=== PATIENT | female | born 1945 | race Hispanic/Latino ===

== ENCOUNTER 2016-04-07 14:06 | Outpatient (CLI) | payer MEDICARE ==
--- NOTE | 2016-04-07 14:40 | Mammography Report ---
Bilateral mammogram: Compared to 07/30/14. CAD study utilized. Findings: Heterogeneous breast parenchyma bilaterally. Circumscribed density right and left breast with benign calcifications scattered throughout right and left breast. Benign axillary nodes. No microcalcification. Impression: Benign findings. Annual followup recommended. BI-RADS CATEGORY: 2 = Benign ACR BI-RADS MAMMOGRAPHIC CODES: 0 = Needs additional imaging evaluation; 1 = Negative; 2 = Benign; 3 = Probably benign; 4 = Suspicious; 5 = Malignant; 6 = Known biopsy-proven malignancy COMMENT: 1. Dense breast tissue, i.e., adenosis, fibrocystic changes, etc., may obscure an underlying neoplasm. 2. Approximately 10% of cancers are not detected with mammography. 3. A negative mammography report should not delay biopsy if a clinically suspicious mass is present. COMMENT: Patient follow-up letters are generated in [employer].
== END 2016-04-07 14:07 | disposition home or self-care (01) ==
LOC: MAMMO 14:06
PROVIDERS: ATTEND Family Medicine
DX: Z12.31 Encounter for screening mammogram for malignant neoplasm of breast (principal)
CPT/HCPCS: 77067; G0202

== ENCOUNTER 2017-02-28 08:39 | Outpatient (CLI) | payer MEDICARE ==
--- NOTE | 2017-02-28 13:15 | Mammography Report ---
BONE DEXA:02/28/17 09:30:00 CLINICAL: Postmenopausal osteoporosis. COMPARISON: 07/30/14 and 05/13/11 TECHNIQUE: Two site bone DEXA performed on an Hologic scanner. FINDINGS: The average BMD of the lumbar spine L1-L4 is 0.773g/cm squared with a T-score of -2.5 and a Z score of -0.2. This compares to 0.770 g/cm squared on the last exams and represents a +0.5% increase in BMD compared to previous exams. The average BMD of the left hip is 0.705g/cm squared with a T-score of -1.9 and a Z score of -0.2.This compares to 0.706g/cm squared on the last exam and represents a -0.2% change in BMD from the previous exam but it +3.0% change from baseline. The femoral neck BMD is 0.503 with a T score of -3.1 and Z score of -1.1 IMPRESSION: WHO classification: Osteoporosis with high fracture risk based on spine and left femoral neck measurements. Minimal improvement in spine BMD compared to the last exam and a slight decline in left hip BMD compared to the previous exam. RECOMMENDATION: Clinical correlation and routine screening. DEFINITIONS: BMD = Bone Mineral Density T-score = BMD related to mean peak bone mass of young adult (mean expressed in Standard Deviation) Z-score = Age matched BMD expressed in SD World Health Organization (WHO) Diagnostic Criteria Normal T-score > -1 SD Osteopenia T-score between -1 and -2.4 SD Osteoporosis T-score -2.5 SD or below NOTE: BMD is not the only risk factor for fracture; also consider factors such as the patient's age, risk of falling, previous osteoporotic fracture, family history of osteoporotic fractures, current smoker, and low body weight. All treatment decisions require clinical judgment and consideration of individual patient factors, including patient preferences, comorbidities, previous drug use and wrist factors not captured in the FRAX model (e.g. frailty, falls, vitamin D deficiency, increased bone turnover, interval significant decline in BMD). Z-scores are not calculated if >80 years of age.
== END 2017-02-28 08:40 | disposition home or self-care (01) ==
LOC: MAMMO 08:39
PROVIDERS: ATTEND Specialist
DX: M81.0 Age-related osteoporosis without current pathological fracture (principal)
CPT/HCPCS: 77080

== ENCOUNTER 2017-04-10 07:22 | Outpatient (CLI) | payer MEDICARE ==
--- NOTE | 2017-04-10 09:00 | Mammography Report ---
Screening mammogram: Routine views compared to prior exams dating back to 2015. The overall fibroglandular pattern is heterogeneously dense with a generally symmetric and diffuse distribution of patchy densities in both breasts. Numerous benign appearing breast calcifications are present throughout both breasts. There is a circumscribed mass in the right breast which is shown progressive enlargement since 2015. Findings are not otherwise remarkable were changed. CAD used. Impression: Right breast asymmetry. Recommendation: Right breast ultrasound. BI-RADS CATEGORY: 0 = Needs additional imaging evaluation ACR BI-RADS MAMMOGRAPHIC CODES: 0 = Needs additional imaging evaluation; 1 = Negative; 2 = Benign; 3 = Probably benign; 4 = Suspicious; 5 = Malignant; 6 = Known biopsy-proven malignancy COMMENT: 1. Dense breast tissue, i.e., adenosis, fibrocystic changes, etc., may obscure an underlying neoplasm. 2. Approximately 10% of cancers are not detected with mammography. 3. A negative mammography report should not delay biopsy if a clinically suspicious mass is present.
== END 2017-04-10 07:23 | disposition home or self-care (01) ==
LOC: MAMMO 07:22
PROVIDERS: ATTEND Specialist
DX: Z12.31 Encounter for screening mammogram for malignant neoplasm of breast (principal)
CPT/HCPCS: 77067

== ENCOUNTER 2017-04-27 07:41 | Outpatient (CLI) | payer MEDICARE ==
--- NOTE | 2017-04-27 08:38 | Ultrasound Report ---
Right breast ultrasound: Patient with recent mammogram demonstrating enlarging right breast mass. Imaging of the breast in the area of concern at 12:00 demonstrates a circumscribed anechoic mass which is slightly elongated and having a maximum dimension of 18 mm. Slight enhancement of through-transmission. Imaging of the axilla demonstrates a homogeneously circumscribed hypoechoic and somewhat elongated mass measuring 2 cm. It appears to have a slightly increased echodensity capsule. There is internal blood flow. No hilum noted. Impressions: 1. The breast mass is consistent with a simple cyst. 2. The axillary mass is most likely a lymph node. The findings are atypical but no suspicious characteristics are noted. Recommendation: Repeat axillary ultrasound in 6 months to reevaluate for any change. BI-RADS CATEGORY: 3 = Probably benign ACR BI-RADS MAMMOGRAPHIC CODES: 0 = Needs additional imaging evaluation; 1 = Negative; 2 = Benign; 3 = Probably benign; 4 = Suspicious; 5 = Malignant; 6 = Known biopsy-proven malignancy COMMENT: 1. Dense breast tissue, i.e., adenosis, fibrocystic changes, etc., may obscure an underlying neoplasm. 2. Approximately 10% of cancers are not detected with mammography. 3. A negative mammography report should not delay biopsy if a clinically suspicious mass is present.
== END 2017-04-27 07:42 | disposition home or self-care (01) ==
LOC: US 07:41
PROVIDERS: ATTEND Family Medicine
DX: N63.10 Unspecified lump in the right breast, unspecified quadrant (principal)

== ENCOUNTER 2017-11-21 07:14 | Outpatient (CLI) | payer MEDICARE ==
--- NOTE | 2017-11-21 16:23 | Ultrasound Report ---
Right axillary ultrasound: Short-term followup for right axillary nodes. Comparison to prior exam in April 2017 again demonstrates the 2 masses identified at that time which both appear essentially the same size and echo pattern. These are approximately 17 mm and 20 mm in maximum dimension. In addition on the current examination 2 additional masses having similar characteristics are noted but are somewhat smaller in size measuring a centimeter each. None of these have clearly defined lymph node characteristics. Impressions: Left basilar masses possibly representing abnormal lymph nodes. The apparent increase in number raises suspicion even though the 2 that are identified have not enlarged. Recommendation: Suggest axillary biopsy of one of the larger masses since they also appear to have the same characteristics. BI-RADS CATEGORY: 4 = Suspicious ACR BI-RADS MAMMOGRAPHIC CODES: 0 = Needs additional imaging evaluation; 1 = Negative; 2 = Benign; 3 = Probably benign; 4 = Suspicious; 5 = Malignant; 6 = Known biopsy-proven malignancy COMMENT: 1. Dense breast tissue, i.e., adenosis, fibrocystic changes, etc., may obscure an underlying neoplasm. 2. Approximately 10% of cancers are not detected with mammography. 3. A negative mammography report should not delay biopsy if a clinically suspicious mass is present.
== END 2017-11-21 07:15 | disposition home or self-care (01) ==
LOC: US 07:14
DX: R92.8 Other abnormal and inconclusive findings on diagnostic imaging of breast (principal)